=== PATIENT | male | born 1970 | race Caucasian/White ===

== ENCOUNTER 2022-04-07 13:31 | Emergency (ER) | payer BC, MEDICAID ==
[2022-04-07] MEDS: Metoprolol Tartrate 50 MG Tab PO ONE (14:11)
[2022-04-07 14:12] VITALS: PULSE 95
[2022-04-07 15:19] VITALS: BP 148/101
== END 2022-04-07 15:05 | disposition home or self-care (01) ==
LOC: CC.ED 13:31 → SUPCPDRO 13:31 → CC.ED 15:05
DX: S96.912A Strain of unspecified muscle and tendon at ankle and foot level, left foot, initial encounter (principal); I25.10 Atherosclerotic heart disease of native coronary artery without angina pectoris; I10 Essential (primary) hypertension; F17.210 Nicotine dependence, cigarettes, uncomplicated; Z88.1 Allergy status to other antibiotic agents; Z88.5 Allergy status to narcotic agent; Z79.899 Other long term (current) drug therapy
CPT/HCPCS: 36415; 71046; 73610-LT; 80053; 84484; 84550; 85025; 85379; 86140; 93005; 93010; 99284; 99285; A9270-GY